=== PATIENT | male | born 1995 | race Caucasian/White ===

== ENCOUNTER 2025-02-21 13:50 | Emergency (ER) | payer OTHER, BC, SELFPAY ==
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
--- NOTE | 2025-02-21 13:58 | ECG_ITS ---
Test Date: 2025-02-21 14:09:06 Measurements Intervals [place] Rate: 67 P: 49 CO: 141 QRS: 84 QRSD: 90 T: 68 QT: 369 QTc: 392 Interpretive Statements SINUS RHYTHM MINIMAL Q WAVES- ANTEROLAT/INF LEADS BORDERLINE ECG No previous ECG available for comparison Electronically Signed On 02-21-2025 14:59:00 CDT by Bryan Martinez D.O.
[2025-02-21 14:08] VITALS: BP 144/92; PULSE 72; RESP 16; TEMP 36.6; O2SAT 99
== END 2025-02-21 14:18 | disposition short-term general hospital (02) ==
PROVIDERS: Emergency Provider Nurse Practitioner
DX: T75.4XXA Electrocution, initial encounter (principal); W86.8XXA Exposure to other electric current, initial encounter
CPT/HCPCS: 93005; 99213; G0463

== ENCOUNTER 2025-02-21 14:35 | Emergency (ER) | payer OTHER, BC, SELFPAY ==
[2025-02-21 14:51] VITALS: BP 179/106; PULSE 84; RESP 18; TEMP 36.7; O2SAT 100
--- NOTE | 2025-02-21 14:53 | ECG_ITS ---
Test Date: 2025-02-21 14:57:30 Measurements Intervals [place] Rate: 67 P: 56 AL: 141 QRS: 78 QRSD: 91 T: 68 QT: 377 QTc: 399 Interpretive Statements SINUS RHYTHM MINIMAL Q WAVES- ANTEROLAT/INF LEADS BORDERLINE ECG Compared to ECG 02/21/2025 14:09:06 No significant changes Electronically Signed On 02-21-2025 14:59:17 CDT by Bryan Martinez D.O.
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
[2025-02-21 17:47] LABS: Basophils Percent Auto 0.3 % (0.2-1.2); Eosinophils Absolute Auto 0.1 K/mm3 (0-0.3); Eosinophils Percent Auto 0.7 % (0-4.4); Hematocrit 41.8 % (42.0-52.0); Hemoglobin 14.5 g/dL (14.0-18.0); Immature Granulocyte Absolute 0.03 K/mm3 (0.00-0.031); Immature Granulocyte Percent A 0.3 % (0-0.5); Lymphocytes Absolute Auto 1.48 K/mm3 (0.9-3.2); Lymphocytes Percent Auto 16.7 % (18.3-44.2); Mean Corpuscular HGB Conc 34.7 g/dl (32-36); Mean Corpuscular Hemoglobin 30.1 pg (26-34); Mean Corpuscular Volume 86.9 fl (80-100); Mean Platelet Volume 11.6 fl (7.4-10.4); Monocytes Absolute Auto 0.5 K/mm3 (0.1-0.6); Monocytes Percent Auto 5.3 % (2.6-8.5); Neutrophils Absolute Auto 6.8 K/mm3 (1.3-6.7); Neutrophils Percent Auto 76.7 % (45.5-73.1); Platelet Count Result 188 k/mm3 (150-375); Red Blood Count 4.81 M/mm3 (4.6-6.20); Red Cell Distribution Width 12.1 % (11.5-14.5); White Blood Count 8.8 K/mm3 (4.5-10.0)
[2025-02-21 17:51] LABS: Alanine Aminotransferase 22 U/L (6-50); Albumin Level 4.7 g/dL (3.5-5.1); Alkaline Phosphatase 64 U/L (38-126); Anion Gap 9 mmol/L (4-12); Aspartate Amino Transferase 30 U/L (17-59); Bilirubin,Total 0.9 mg/dL (0.2-1.3); Blood Urea Nitrogen 8 mg/dL (9-20); Calcium 9.2 mg/dL (8.4-10.2); Carbon Dioxide 25 mmol/L (22-30); Chloride 105 mmol/L (98-107); Creatine Kinase 143 U/L (55-170); Estimated CRCL calculation 104 ml/min; Estimated Glomerular Filt Rate > 60; Glucose 95 mg/dL (65-110); Potassium 3.8 mmol/L (3.4-5.0); Sodium 139 mmol/L (137-145); Total Protein 7.7 g/dL (6.3-8.2)
[2025-02-21 17:59] LABS: INR 1.1; Prothrombin Time 14.3 Seconds (11.1-14.7)
[2025-02-21 18:02] LABS: Troponin I < 0.012 ng/mL (0.000-0.034)
[2025-02-21 18:09] LABS: Add Urine Microscopic? NO; Appearance Urine Clear (Clear); Bilirubin Urine Negative (Negative); Blood Urine Negative (Negative); Color Urine Yellow (Yellow); Glucose Urine UA Negative (Negative); Ketones Urine Negative (Negative); Leukocyte Esterase Ur Negative LEU/UL (Negative); Nitrate Urine Negative (Negative); Protein Urine Negative (Negative)
[2025-02-21] MEDS: TETANUS,DIPHTHERIA,AC PERTUSSIS ADULT (0.5 ML) BOOSTRIX IM (18:26)
[2025-02-21 18:56] VITALS: BP 133/86; PULSE 74; RESP 16; TEMP 36.8; O2SAT 97
== END 2025-02-21 18:59 | disposition home or self-care (01) ==
PROVIDERS: Physician Assistant; Emergency Provider Physician Assistant
DX: T23.222A Burn of second degree of single left finger (nail) except thumb, initial encounter (principal); T31.0 Burns involving less than 10% of body surface; W86.1XXA Exposure to industrial wiring, appliances and electrical machinery, initial encounter; Z23 Encounter for immunization
CPT/HCPCS: 36415; 80053; 81003; 82550; 83735; 84484; 85025; 85610; 90471; 90715; 93005; 99284